=== PATIENT | male | born 2000 | race Caucasian/White ===

== ENCOUNTER 2024-11-02 11:29 | Emergency (ER) | payer OTHER, SELFPAY ==
[2024-11-02 11:35] VITALS: BP 150/76; PULSE 56; RESP 15; TEMP 36.3; O2SAT 100
--- NOTE | 2024-11-02 11:37 | DI.RAD.S_ITS ---
PROCEDURE: XR ANKLE LT MIN 3V INDICATIONS: swollen/bruised TECHNIQUE: 3 views of the ankle were acquired. COMPARISON: None. FINDINGS: No acute fracture or dislocation. The ankle mortise is preserved on the nonweightbearing view. No talar dome osteochondral defect. Small-moderate tibiotalar joint effusion. The joint spaces are preserved. IMPRESSION: Small-moderate ankle joint effusion. Dictated by: Aurelio Hull M.D. on 11/02/2024 at 12:35 Approved by: Aurelio Hull M.D. on 11/02/2024 at 12:36
--- NOTE | 2024-11-02 11:37 | DI.RAD.S_ITS ---
PROCEDURE: XR FOOT LT MIN 3V INDICATIONS: swollen/bruised TECHNIQUE: 3 views of the foot were acquired. COMPARISON: None. FINDINGS: No acute fracture or dislocation. The Lisfranc interval is preserved on the nonweightbearing view. The joint spaces are preserved. Small-moderate ankle joint effusion. IMPRESSION: Small-moderate ankle joint effusion. No acute fracture or dislocation. Dictated by: Aurelio Hull M.D. on 11/02/2024 at 12:34 Approved by: Aurelio Hull M.D. on 11/02/2024 at 12:35
--- NOTE | 2024-11-02 11:56 | ED.LOWEXIN ---
HPI - Extremity Injury (Lower) <Nida Delarosa PA-C - Last Filed: 11/02/24 13:15> General Chief Complaint: Extremity Injury, Lower Stated Complaint: Left ankle pain Time Seen by Provider: 11/02/24 11:56 Source: patient Mode of arrival: Family Vehicle History of Present Illness HPI Narrative: Mr. Herrera is a very pleasant 24-year-old male, active [employer], who presents to the emergency department for left ankle pain x7 days. Patient was playing soccer last Wednesday when he had an inversion injury of the left ankle, the foot rolled in and he developed immediate pain in the lateral aspect of the left ankle. Since his injury he is continued walking and attempting to ?work through the pain? because he has been very busy. He is noticed however that the pain swelling and bruising has been getting worse in the lateral aspect of the ankle and he was recommended to come to the emergency department for x-rays. He has been using prescription ibuprofen 600 mg as needed for pain which has been helping a lot, and he is occasionally soaked the foot in cold water. He denies any other injuries, no foot pain, no open wounds. Reports that he did injure this ankle/sprain it a few years ago as well. Related Data Allergies Allergy/AdvReac Type Severity Reaction Status Date / Time No Known Drug Allergies Allergy Verified 11/02/24 11:53 Review of Systems <Nida Delarosa PA-C - Last Filed: 11/02/24 13:15> Review of Systems ROS Unobtainable: All systems reviewed & are unremarkable except as noted in HPI and below Patient History <Nida Delarosa PA-C - Last Filed: 11/02/24 13:15> Social History Smoking Status: Former smoker Smoking Status: Former smoker tobacco type: cigarettes Exam <Nida Delarosa PA-C - Last Filed: 11/02/24 13:15> Narrative Exam Narrative: GENERAL: 24 year old patient appears stated age. Well-developed patient, in no acute distress. HEAD: Atraumatic. Normocephalic. CARDIOVASCULAR: Regular rate RESPIRATORY: ?Nonlabored respirations. ?Speaking in clear, full sentences. ? EXTREMITIES: Bruising on the lateral aspect of the left ankle overlying the lateral heel and just proximal to the left lateral malleolus. Tenderness palpation of the left lateral malleolus, very mild. There is swelling of the lateral aspect of the ankle. No tenderness to palpation of the dorsal midfoot, heel, medial malleolus or the remainder of the left lower extremity. Strong DP and PT pulses bilaterally, sensation intact to light touch in the plantar and dorsal aspect of the feet, brisk capillary refill in the toes. He does have pain with inversion of the ankle, no pain with eversion, plantar flexion or dorsiflexion. NEURO: AOx3. ?Clear speech. ?Moves all 4 extremities appropriately. SKIN: No rash or erythema of visible areas, no open wounds, there is ecchymosis on the lateral left ankle. Initial Vital Signs Initial Vital Signs: Vital Signs Temperature 97.4 F L 11/02/24 11:35 Pulse Rate 56 L 11/02/24 11:35 Respiratory Rate 15 11/02/24 11:35 Blood Pressure 150/76 H 11/02/24 11:35 Pulse Oximetry 100 11/02/24 11:35 Oxygen Delivery Method Room Air 11/02/24 11:35 <Milind Mckinnon MD - Last Filed: 11/02/24 17:48> Initial Vital Signs Initial Vital Signs: Vital Signs Temperature 97.4 F L 11/02/24 11:35 Pulse Rate 56 L 11/02/24 11:35 Respiratory Rate 15 11/02/24 11:35 Blood Pressure 150/76 H 11/02/24 11:35 Pulse Oximetry 100 11/02/24 11:35 Oxygen Delivery Method Room Air 11/02/24 11:35 Course <Nida Delarosa PA-C - Last Filed: 11/02/24 13:15> Orders Ordered: ED Orders 11/02/24 11:37 XR ankle LT min 3V Stat XR foot LT min 3V Stat Vital Signs Vital signs: Vital Signs - 8 hr 11/02/24 11:35 11/02/24 13:29 Temperature 97.4 F L Pulse Rate 56 L 85 Respiratory Rate 15 16 Blood Pressure 150/76 H 131/59 L Pulse Oximetry 100 96 Oxygen Delivery Method Room Air Room Air <Milind Mckinnon MD - Last Filed: 11/02/24 17:48> Orders Ordered: ED Orders 11/02/24 11:37 XR ankle LT min 3V Stat XR foot LT min 3V Stat Vital Signs Vital signs: Vital Signs - 8 hr 11/02/24 11:35 11/02/24 13:29 Temperature 97.4 F L Pulse Rate 56 L 85 Respiratory Rate 15 16 Blood Pressure 150/76 H 131/59 L Pulse Oximetry 100 96 Oxygen Delivery Method Room Air Room Air MDM - Extremity Injury (Lower) <Nida Delarosa PA-C - Last Filed: 11/02/24 13:15> Medical Records Medical records narrative: None available for review [facility] Narrative Medical decision making narrative: 24-year-old male, active [employer], who presents to the emergency department for left ankle pain x7 days. Differential diagnosis includes but is not limited to left ankle sprain, strain, ligament injury, fracture, dislocation, etc. On exam patient is in no acute distress, nontoxic appearing, vital signs appropriate. He is ecchymosis and swelling of the lateral aspect of the left ankle after an inversion injury. Ankle x-ray obtained in triage, patient declines the need for any medication at this time as he took ibuprofen earlier today. Left foot is neurovascularly intact with no open wounds. Left ankle x-ray reveals no acute fracture or dislocation. The ankle mortise is preserved. There is small to moderate tibiotalar joint effusion. The joint spaces are preserved. Suspect grade I-II left ankle inversion sprain. Pt declines crutches, would prefer to weight bear. Recommended airsplint for at least one week then re-eval with PCP. Strict RICE therapy, continued basil wrap or elastic wrap once symptoms improvement. Patient tolerated placement of splint easily, neurovascularly intact after. He is bearing weight without difficulty. ED return precautions discussed. He is agreeable with the plan, all questions answered, stable for discharge home. Discharge Plan Departure Patient Disposition: Home Clinical Impression: Inversion sprain of left ankle Qualifiers: Encounter type: initial encounter Qualified Code(s): S93.402A - Sprain of unspecified ligament of left ankle, initial encounter Instructions: DI for Ankle Sprain Activity Restrictions/Additional Instructions: Dear Mr. Herrera, Today your X-ray did not show and broken bones or dislocations. I suspect your pain and bruising is due to a sprain/ligament injury. Please wear the ankle splint for at least one week, if your symptoms improved you can then start using an BASIL wrap or elastic ankle wrap instead once cleared by your primary doctor. I recommend continuing to use an ankle brace/wrap whenever exercising moving forward. Please use RICE therapy for your pain in addition to ibuprofen/acetaminophen. Rest the painful area. Ice the area of pain/swelling for at least 15 minutes, 4x a day. Compress the area of swelling using a brace, wrap, or splint if applied. Elevate the painful or swollen extremity by supporting it above the level of the heart with pillows when sitting or laying. Please take Ibuprofen (Motrin/Advil) or Acetaminophen (Tylenol) for pain. These are available over the counter. You may take Ibuprofen 600 mg every 8 hours with food for pain. You may also take Acetaminophen 650 mg every 4-6 hours for pain. Do not exceed 3000 mg of Tylenol a day as this can cause liver damage. Do not drink alcohol with either of these medications. Please follow up with your primary care doctor within the next 2-3 days for ER follow-up. (If you do not have a PCP you can call [phone]. ?to schedule an appointment with an [facility] Primary Care Provider) IF YOU DEVELOP ANY NEW OR WORSENING SYMPTOMS, RETURN TO THE ER! Please read the attached instructions, they highlight more specific treatments and interventions for you at home. Thank you for letting me participate in your care, Nida Delarosa PA-C Referrals: Provider,Kalee AVENDANO [Primary Care Provider] - Stand Alone Forms: Patient Portal/API/Survey, Work Release Note ED Sign-out <Milind Mckinnon MD - Last Filed: 11/02/24 17:48> Cosign ED Attending Sharonda Attestation: I was immediately available in the department for consultation. ?This documentation has been reviewed and I agree with assessment and plan. Supervised by Milind Mckinnon MD
[2024-11-02 13:29] VITALS: BP 131/59; PULSE 85; RESP 16; O2SAT 96
== END 2024-11-02 13:25 | disposition home or self-care (01) ==
PROVIDERS: Emergency Provider Physician Assistant
DX: S93.402A Sprain of unspecified ligament of left ankle, initial encounter (principal); X50.1XXA Overexertion from prolonged static or awkward postures, initial encounter; Y93.66 Activity, soccer
CPT/HCPCS: 73610; 73630; 99281; 99283